=== PATIENT | male | born 1990 | race Caucasian/White ===

== ENCOUNTER 2017-03-05 10:31 | Inpatient (IN) | payer OTHER ==
[~2017-03-05] VITALS: Ht 175.3 cm; Wt 77.1 kg
--- NOTE | 2017-03-05 10:52 | NUR ---
PT BROUGHT TO ED VIA [facility] ACCOMPANIED BY ROSEANN REESE FOR ALOC. PER REPORT PT HAS HX OF METH USE, PD WAS CALLED BY FAMILY D/T PT BREAKING A GUITAR ON FRONT DOOR AND THEN PROCEEDING TO ACT ERRATIC AND KNOCKING ON NEIGHBORS DOORS. PT ARRIVED TO ED IN 4PT RESTRAITS D/T BEING COMBATIVE ON SCENE. PT NOT ANSWERING QUESTIONS APPROPRIATELY, CONTINUES TO REPEAT "THIS IS THE BEST EVENT EVER OF ALL TIME," EPISODES OF TENSING BODY, RESPS EVEN AND UNLABORED, SKIN WARM/DRY TO TOUCH, SCATTERED ABRASIONS NOTED TO BILATERAL ARMS. PT GOWNED, PLACED ON DATA DEVELOPER.
[2017-03-05 11:26] LABS: CALCIUM 8.6 mg/dL (8.5-10.1); CARBON DIOXIDE 27.7 mmol/L (21-32); CHLORIDE SERUM 102 mmol/L (98-107); CREATININE SERUM 1.3 mg/dL (0.7-1.3); GFR1 > 60 mL/min; GLUCOSE SERUM 126 mg/dL (74-106); POTASSIUM SERUM 3.4 mmol/L (3.5-5.1); SODIUM SERUM 141 mmol/L (136-145)
[2017-03-05 11:29] LABS: ALBUMIN 4.1 g/dL (3.4-5.0); ALKALINE PHOSPHATASE 53 U/L (46-116); ALT/SGPT 29 U/L (16-63); AST/SGOT 27 U/L (15-37); BILIRUBIN TOTAL 1.1 mg/dL (0.20-1.00); TOTAL PROTEIN, SERUM 7.9 g/dL (6.4-8.2)
--- NOTE | 2017-03-05 11:49 | NUR ---
PT SITTING UP IN ED LANI HAVING HALLUCINATIONS, TALKING TO WALL, STATES HIS PARENTS ARE IN THE ROOM AND HE NEEDS TO LEAVE, STATES, "I NEED TO GO TAKE CARE OF THINGS MY MOM'S HERE, LET ME GO YOU DON'T KNOW WHAT'S GOING ON I HAVE TO TAKE CARE OF IT." ATTEMPTED TO REORIENT PT, INFORMED HIM HE IS IN A SAFE PLACE AND WE ARE HERE TO HELP HIM. PT ATTEMPTING TO REMOVE RESTRAINTS AND STATING HE NEEDS TO GO. DR. MATTHEW MADE AWARE.
--- NOTE | 2017-03-05 12:00 | NUR ---
PT MEDICATED WITH ATIVAN 2MG SLOW IVP FOR AGIATION, CONTINUES IN 4PT RESTRAINTS, +PMSC TO ALL EXTREMITIES NOTED, RESPS EVEN AND UNLABORED, NO S/S OF DISTRESS NOTED.
--- NOTE | 2017-03-05 12:30 | NUR ---
PT CONTINUES WITH AGITATION AND ATTEMPTING TO REMOVE RESTRAINTS AND STATING "I NEED TO GO," AND TENSING UP BODY, RESTLESS. PT MEDICATED WITH HALDOL 5MG IM FOR AGITATION PER MD ORDERS. ERT AT BEDSIDE TO ASSIST.
--- NOTE | 2017-03-05 13:00 | NUR ---
PORTABLE X-RAY IN PROGRESS AT BEDSIDE.
--- NOTE | 2017-03-05 13:16 | NUR ---
PT SLEEPING IN ED GURNEY, AROUSABLE, RESPS EVEN AND UNLABORED, +PMSC TO ALL EXTREMITIES, RESTRAINTS CONTINUED FOR PT SAFETY, PT IN VIEW OF NURSES STATION, PT IN NO DISTRESS.
[2017-03-05 13:54] LABS: BASOPHIL % 0.3 % (0-2); PLATELET COUNT 379 x10^3mcL (130-400); RED CELL DISTRIBUTION WIDTH 12.5 % (11.5-14.5)
[2017-03-05 14:03] LABS: PHOSPHOROUS 2.8 mg/dL (2.5-4.9)
--- NOTE | 2017-03-05 14:07 | NUR ---
REPORT CALLED TO JAZZ RICARDO. PT TO BE ADMITTED TO [place] [id number]. PT IN NO DISTRESS.
--- NOTE | 2017-03-05 14:30 | NUR ---
RECEIVED PT FROM ED [facility] [employer], HAS HIS EYES CLOSED, MOANS OR SPEAKS FEW WORDS ON PAINFUL STIMULI. NO SOB NOTED. NO S/S OF CHEST PAIN/PRESSURE, NSR ON THE MONITOR. NO S/S OF ABDOMINAL DISCOMFORT. ON 2 POINT SOFT WRIST RESTRAINT, NO INJURY NOTED TO THE AREA. IV SITE PATENT AND INTACT. SIDE RAILS UPX2. CALL LIGHT ON REACH. BED ALARM ON. HOB ELEVATED AT 40 DEG. ENDORSED
[2017-03-05 14:36] VITALS: BP 122/88
[2017-03-05 14:54] LABS: T3 TOTAL 0.99 ng/mL
--- NOTE | 2017-03-05 15:00 | NUR ---
PATIENT IN BED APPEARS CALM PATIENT'S MOTHER AND AUNT WERE INTO VISIT AND HAVE GONE HOME. PATIENT WANTED OOB TO GO TO THE BATHROOM. BILAT SOFT WRIST RESTRAINTS REMOVED AT THIS TIME PATIENT WAS AWAKE AND ALERT ABLE TO COOPERATED AND FOLLOW INSTRUCTIONS. PATIENT ASSISTED BACK TO BED, IVF INFUSING WELL. PATIENT AGREED TO REMAIN IN BED, USE CALL LIGHT FOR ASSIT IF RESTRAINTS ARE TO REMAIN OFF FOR HIS SAFETY. URINE SPECIMEN WAS COLLECTED AND SENT TO THE LAB. WILL CONTINUE TO MONITOR.
--- NOTE | 2017-03-05 15:45 | NUR ---
PATIENT REMAINS IN BED WITH RESTRAINTS ON BILAT WRISTS IN PLACE. IVF AND K-SHEA INFUSING WELL. FAMILY MEMBERS AT BEDSIDE. DR CHRISTENSEN IN ROOM SPEAKING WITH FAMILY. PATIENT REMAINS CALM APPEARS TO BE RESTING WELL. WILL CONTINUE TO MONITOR.
[2017-03-05 17:16] LABS: FREE T4 1.06 ng/dL (0.76-1.46); FREE THYROXINE INDEX 3.4 ug/dL (1.4-4.5); T4(THYROXINE) 8.6 ug/dL (4.7-13.3)
[2017-03-05 17:37] LABS: microscopic required? NO
[2017-03-05 17:48] LABS: UA SPECIFIC GRAVITY 1.015 (1.005-1.035); urine erythrocyte NEGATIVE (NEGATIVE)
[2017-03-05 17:58] LABS: AMPHETAMINE QUAL UR POSITIVE (NEG <=1000)
[2017-03-05 20:14] VITALS: BP 128/81
--- NOTE | 2017-03-06 00:28 | NUR ---
ASLEEP, BREATHING EVEN AND UNLABORED. SINUS RHYTHM ON TELE. CALL LIGHT WITHIN EASY REACH. ENDORSED CARE TO NURSE ABA.
--- NOTE | 2017-03-06 01:06 | NUR ---
ASSUMED CARE OF PT. RECEIVED IN BED, WITH EYES CLOSED, APPEARS ASLEEP, EASILY AROUSABLE. RESP. EVEN AND UNLABORED. ON ROOM AIR, NO DISTRESS NOTED. SR ON THE MONITOR. APPEARS COMFORTABLE. IVF, NS AT 200ML/HR, INFUSING VIA RFA, SITE CLEAR. SITTER AT THE BEDSIDE FOR SAFETY. NO COMPLAINTS NOTED AT THIS TIME. WILL CONTINUE TO MONITOR. .
[2017-03-06 05:00] VITALS: BP 108/65
[2017-03-06 06:12] LABS: BASOPHIL % 0.6 % (0-2); PLATELET COUNT 269 x10^3mcL (130-400); RED CELL DISTRIBUTION WIDTH 12.9 % (11.5-14.5)
--- NOTE | 2017-03-06 06:33 | NUR ---
AFEBRILE AND VITAL SIGNS STABLE. SLEPT MOST OF THE NIGHT. DENIES PAIN OR ANY DISCOMFORT. RESP. EVEN AND UNLABORED. NO DISTRESS NOTED. IVF INTACT AND INFUSING WELL, SITE CLEAR.CALM AND NO AGITATION NOTED. SITTER AT THE BEDSIDE FOR SAFETY. VOIDING FREELY. WILL ENDORSE TO INCOMING NURSE.
[2017-03-06 06:40] LABS: CALCIUM 7.9 mg/dL (8.5-10.1); CARBON DIOXIDE 21.1 mmol/L (21-32); CHLORIDE SERUM 107 mmol/L (98-107); GFR1 > 60 mL/min; PHOSPHOROUS 3.1 mg/dL (2.5-4.9); POTASSIUM SERUM 3.7 mmol/L (3.5-5.1); SODIUM SERUM 140 mmol/L (136-145)
[2017-03-06 06:53] LABS: GLUCOSE SERUM 59 mg/dL (74-106)
--- NOTE | 2017-03-06 07:30 | NUR ---
AAO TIMES 3. SLEEPING FREQUENTLY, BUT AROUSABLE TO TOUCH AND VOICE. TELE # 31 SR WITH OCCASIONAL INVERTED P WAVES, DR PERSON MADE AWARE AT 0820. LUNGS CTA. NO SOB. O2 SAT ON RA 96%. NO C/O PAIN. COOPERATIVE. MEDICAL ROUNDS OCCURED AT [address] BOWEN AND THE MEDICINE TEAM. THE PT'S MOTHER IS PRESENT. DR OSORIO SAW HIM LAST NIGHT AND HE IS NOT 51/50, THE PLAN IS TO DISCHARGE HIM LATER TODAY. THE MOTHER SAYS HE LIVES IN HIS [place]. COMMERCIAL JOURNEYMAN ELECTRICIAN WILL GET HIM RESOURCES FOR DRUG REHAB INFORMATION.
[2017-03-06 09:00] VITALS: BP 119/72
--- NOTE | 2017-03-06 09:33 | NUR ---
PTS BLOOD SUGAR THIS AM WAS 59, I GAVE HIM APPLE JUICE AND HIS BREAKFAST TRAY.
[2017-03-06 14:59] VITALS: BP 132/78
[2017-03-06 16:37] VITALS: BP 132/78
--- NOTE | 2017-03-06 18:02 | NUR ---
GAVE PT AND MOTHER PACKET FROM STANDARD MACHINE STITCHER REGARDING MENTAL HEALTH SERVICES AVAILABLE, ABOUT DRUG REHAB. I ALSO GAVE DISCHARGE TEACHING REGARDING DRUG ABUSE. DC'D SL ANGIO INTACT. PT SIGNED DISCHARGE INSTRUCTIONS, NO PRESRIPTION. PT AND MOM VERBALIZED "I UNDERSTAND" TO ALL INSTRUCTIONS.
== END 2017-03-06 18:02 | disposition home or self-care (01) | DRG 52 ==
LOC: ED 10:31 → DU 13:23
PROVIDERS: Emergency Medicine; ADMIT Family Medicine
DX: G92 Toxic encephalopathy (principal); M62.82 Rhabdomyolysis; E87.6 Hypokalemia; E83.51 Hypocalcemia
CPT/HCPCS: 83880; 84439; G0480; J1630; J2060; J3480; J7030; Q0092